=== PATIENT | male | born 1925 | race Caucasian/White ===

== ENCOUNTER 2016-03-31 | Outpatient (CLI) | END 2016-03-31 07:07 | disposition critical access hospital (66) | CPT/HCPCS: A0425; A0429 ==

== ENCOUNTER 2016-03-31 07:24 | Inpatient (IN) | payer MEDICARE, MEDICAID ==
[2016-03-31] MEDS ORDERED: ASPIRIN CHEW 81 MG TABLET PO STA (09:03)
[2016-03-31] MEDS ORDERED: ASPIRIN CHEW 81 MG TABLET ONE (09:13)
[2016-03-31] MEDS ORDERED: ACETAMINOPHEN 325 MG TABLET PO PRN ×2 (10:48→13:24)
[2016-03-31] MEDS ORDERED: SODIUM CHLORIDE FLUSH 0.9% 10 ML SYRINGE IVP PRN ×2 (10:48→13:24)
[2016-03-31] MEDS ORDERED: ENOXAPARIN 40 MG/0.4 ML SYRINGE SUBQ SCH ×2 (11:00→13:33)
[2016-03-31] MEDS ORDERED: SODIUM CHLORIDE 0.9% 1,000 ML IV SCH ×2 (11:00→14:00)
[2016-03-31] MEDS ORDERED: SODIUM CHLORIDE FLUSH 0.9% 10 ML SYRINGE IVP SCH (14:00)
[2016-03-31] MEDS: ENOXAPARIN 40 MG/0.4 ML SYRINGE SUBQ SCH (15:00)
[2016-03-31] MEDS: SODIUM CHLORIDE FLUSH 0.9% 10 ML SYRINGE IVP SCH ×2 (15:00→20:38)
[2016-03-31] MEDS: ATORVASTATIN 40 MG TABLET PO SCH (20:38)
[2016-03-31] MEDS ORDERED: ATORVASTATIN 40 MG TABLET PO SCH (21:00)
[2016-04-01] MEDS: SODIUM CHLORIDE FLUSH 0.9% 10 ML SYRINGE IVP SCH ×3 (01:38→21:46)
[2016-04-01] MEDS ORDERED: ASPIRIN 325 MG TABLET PO SCH (08:00)
[2016-04-01] MEDS: ASPIRIN CHEW 81 MG TABLET PO SCH (08:56)
[2016-04-01] MEDS: ENOXAPARIN 40 MG/0.4 ML SYRINGE SUBQ SCH (08:57)
[2016-04-01] MEDS: POLYETHYLENE GLYCOL 3350 17 GM PACKET PO SCH (08:57)
[2016-04-01] MEDS ORDERED: POLYETHYLENE GLYCOL 3350 17 GM PACKET PO SCH (09:00)
[2016-04-01] MEDS ORDERED: ASPIRIN EC 81 MG TABLET PO SCH (09:00)
[2016-04-01] MEDS: ATORVASTATIN 40 MG TABLET PO SCH (21:44)
[2016-04-02] MEDS: SODIUM CHLORIDE FLUSH 0.9% 10 ML SYRINGE IVP SCH ×4 (00:18→23:26)
[2016-04-02] MEDS: ASPIRIN CHEW 81 MG TABLET PO SCH (10:38)
[2016-04-02] MEDS: ENOXAPARIN 40 MG/0.4 ML SYRINGE SUBQ SCH (10:38)
[2016-04-02] MEDS: POLYETHYLENE GLYCOL 3350 17 GM PACKET PO SCH (10:39)
[2016-04-02] MEDS ORDERED: ALBUTEROL NEB 2.5 MG/3 ML INH PRN (13:22)
[2016-04-02] MEDS: ATORVASTATIN 40 MG TABLET PO SCH (21:00)
[2016-04-03] MEDS: SODIUM CHLORIDE FLUSH 0.9% 10 ML SYRINGE IVP SCH (07:20)
[2016-04-03] MEDS: ASPIRIN CHEW 81 MG TABLET PO SCH (08:54)
[2016-04-03] MEDS: POLYETHYLENE GLYCOL 3350 17 GM PACKET PO SCH (08:54)
[2016-04-03] MEDS: ENOXAPARIN 40 MG/0.4 ML SYRINGE SUBQ SCH (08:55)
== END 2016-04-03 12:45 | DRG 65 ==
DX: I63.9 Cerebral infarction, unspecified (principal); G81.94 Hemiplegia, unspecified affecting left nondominant side; I63.8 Other cerebral infarction; I48.92 Unspecified atrial flutter; R47.1 Dysarthria and anarthria; R29.810 Facial weakness; G83.24 Monoplegia of upper limb affecting left nondominant side; I48.91 Unspecified atrial fibrillation; F17.290 Nicotine dependence, other tobacco product, uncomplicated; R29.704 NIHSS score 4; D69.6 Thrombocytopenia, unspecified; J98.4 Other disorders of lung; Z90.01 Acquired absence of eye; M16.10 Unilateral primary osteoarthritis, unspecified hip; M17.10 Unilateral primary osteoarthritis, unspecified knee; H91.92 Unspecified hearing loss, left ear; G89.29 Other chronic pain; M54.5 Low back pain; Z86.73 Personal history of transient ischemic attack (TIA), and cerebral infarction without residual deficits; Z91.81 History of falling; Z66 Do not resuscitate

== ENCOUNTER 2016-06-25 17:54 | Outpatient (CLI) | payer MEDICARE, MEDICAID | END 2016-06-25 17:55 | disposition critical access hospital (66) | DX: W01.0XXA Fall on same level from slipping, tripping and stumbling without subsequent striking against object, initial encounter (principal); Y92.018 Other place in single-family (private) house as the place of occurrence of the external cause; M25.551 Pain in right hip | CPT/HCPCS: A0425; A0429 ==

== ENCOUNTER 2016-06-25 18:13 | Inpatient (IN) | payer MEDICARE, MEDICAID ==
[2016-06-25] MEDS ORDERED: SODIUM CHLORIDE FLUSH 0.9% 10 ML SYRINGE IVP PRN (19:35)
[2016-06-25] MEDS ORDERED: ACETAMINOPHEN 325 MG TABLET PO PRN (19:35)
[2016-06-25] MEDS ORDERED: ONDANSETRON 4 MG/2 ML VIAL IVP PRN (19:35)
[2016-06-25] MEDS ORDERED: TEMAZEPAM 15 MG CAPSULE PO PRN (19:35)
[2016-06-25] MEDS ORDERED: ATORVASTATIN 40 MG TABLET PO SCH (19:41)
[2016-06-25] MEDS: MORPHINE 2 MG/ML SYRINGE IVP PRN (20:08)
[2016-06-25] MEDS: SODIUM CHLORIDE 0.9% 1,000 ML IV SCH (20:51)
[2016-06-25] MEDS: SODIUM CHLORIDE FLUSH 0.9% 10 ML SYRINGE IVP SCH (20:52)
[2016-06-25] MEDS: HYDROcod/ACETAM 5/325 MG TABLET PO PRN (21:25)
[2016-06-26] MEDS: MORPHINE 2 MG/ML SYRINGE IVP PRN ×2 (04:54→07:48)
[2016-06-26] MEDS: SODIUM CHLORIDE FLUSH 0.9% 10 ML SYRINGE IVP SCH ×3 (06:46→21:04)
[2016-06-26] MEDS: SODIUM CHLORIDE 0.9% 1,000 ML IV SCH ×2 (07:59→21:05)
[2016-06-26] MEDS: POLYETHYLENE GLYCOL 3350 17 GM PACKET PO SCH (08:02)
[2016-06-26] MEDS ORDERED: ASPIRIN EC 81 MG TABLET PO SCH (09:00)
[2016-06-26] MEDS ORDERED: LACTATED RINGERS 1,000 ML IV ONE ×2 (10:58→12:41)
[2016-06-26] MEDS ORDERED: PHENYLEPHRINE 10 MG/ML VIAL IV ONE (11:02)
[2016-06-26] MEDS ORDERED: ACETAMINOPHEN 1,000 MG/100 ML VIAL IV ONE (11:02)
[2016-06-26] MEDS ORDERED: ceFAZolin 1 GM VIAL IV ONE (11:02)
[2016-06-26] MEDS ORDERED: PROPOFOL 200 MG/20 ML VIAL IVP ONE (11:02)
[2016-06-26] MEDS ORDERED: KETOROLAC 30 MG/ML VIAL IVP ONE (11:02)
[2016-06-26] MEDS ORDERED: DEXAMETHASONE 4 MG/ML VIAL IVP ONE (11:02)
[2016-06-26] MEDS ORDERED: ALBUTEROL NEB 2.5 MG/3 ML INH ONE (12:14)
[2016-06-26] MEDS ORDERED: ONDANSETRON 4 MG/2 ML VIAL IVP PRN (12:22)
[2016-06-26] MEDS ORDERED: ACETAMINOPHEN 325 MG TABLET PO PRN (12:22)
[2016-06-26] MEDS ORDERED: PROCHLORPERAZINE 10 MG/2 ML VIAL IVP PRN (12:22)
[2016-06-26] MEDS ORDERED: ceFAZolin 2 GM/50 ML 50 ML IV SCH (12:30)
[2016-06-26] MEDS: SODIUM CHLORIDE 0.45% 1,000 ML IV SCH (13:40)
[2016-06-26] MEDS: ceFAZolin 2 GM/50 ML 50 ML IV SCH (17:47)
[2016-06-26] MEDS: HYDROcod/ACETAM 5/325 MG TABLET PO PRN (18:04)
[2016-06-26] MEDS ORDERED: ceFAZolin 2 GM/50 ML 50 ML IV ONE (22:00)
[2016-06-27] MEDS: SODIUM CHLORIDE 0.45% 1,000 ML IV SCH ×2 (00:13→00:23)
[2016-06-27] MEDS: SODIUM CHLORIDE 0.9% 1,000 ML IV SCH (00:24)
[2016-06-27] MEDS: ceFAZolin 2 GM/50 ML 50 ML IV SCH (01:55)
[2016-06-27] MEDS: HYDROcod/ACETAM 5/325 MG TABLET PO PRN ×3 (04:43→17:59)
[2016-06-27] MEDS: SODIUM CHLORIDE FLUSH 0.9% 10 ML SYRINGE IVP SCH ×3 (04:43→23:00)
[2016-06-27] MEDS: POLYETHYLENE GLYCOL 3350 17 GM PACKET PO SCH (08:29)
[2016-06-27] MEDS: ENOXAPARIN 30 MG/0.3 ML SYRINGE SUBQ SCH (08:33)
[2016-06-27] MEDS: CALCIUM CARBONATE CHEW 500 MG TABLET PO SCH ×2 (08:34→20:38)
[2016-06-27] MEDS: KETOROLAC 15 MG/ML VIAL IVP PRN ×2 (08:46→14:05)
[2016-06-27] MEDS: NICOTINE 14 MG PATCH TOP SCH (10:20)
[2016-06-28] MEDS: SODIUM CHLORIDE FLUSH 0.9% 10 ML SYRINGE IVP SCH (06:04)
[2016-06-28] MEDS: NICOTINE 14 MG PATCH TOP SCH (08:49)
[2016-06-28] MEDS: POLYETHYLENE GLYCOL 3350 17 GM PACKET PO SCH (08:49)
[2016-06-28] MEDS: HYDROcod/ACETAM 5/325 MG TABLET PO PRN (08:50)
[2016-06-28] MEDS: CALCIUM CARBONATE CHEW 500 MG TABLET PO SCH (08:50)
[2016-06-28] MEDS ORDERED: SENNA 8.6 MG TABLET PO SCH (09:00)
[2016-06-28] MEDS ORDERED: DOCUSATE SODIUM 250 MG CAPSULE PO SCH (09:00)
[2016-06-28] MEDS: ENOXAPARIN 30 MG/0.3 ML SYRINGE SUBQ SCH (09:12)
== END 2016-06-28 11:29 | DRG 470 ==
PROC: 0SRR01Z Replacement of Right Hip Joint, Femoral Surface with Metal Synthetic Substitute, Open Approach (ICD-10-PCS; principal; 2016-06-26 08:39)
DX: S72.001A Fracture of unspecified part of neck of right femur, initial encounter for closed fracture (principal); S72.041A Displaced fracture of base of neck of right femur, initial encounter for closed fracture; Y92.009 Unspecified place in unspecified non-institutional (private) residence as the place of occurrence of the external cause; Z86.73 Personal history of transient ischemic attack (TIA), and cerebral infarction without residual deficits; I69.354 Hemiplegia and hemiparesis following cerebral infarction affecting left non-dominant side; I48.92 Unspecified atrial flutter; W01.0XXA Fall on same level from slipping, tripping and stumbling without subsequent striking against object, initial encounter; Y92.008 Other place in unspecified non-institutional (private) residence as the place of occurrence of the external cause; I48.2 Chronic atrial fibrillation; M21.372 Foot drop, left foot; M16.12 Unilateral primary osteoarthritis, left hip; E78.00 Pure hypercholesterolemia, unspecified; Z66 Do not resuscitate; Z72.0 Tobacco use; Z79.82 Long term (current) use of aspirin; Z91.81 History of falling